=== PATIENT | female | born 1945 | race Caucasian/White ===

== ENCOUNTER 2019-10-20 09:51 | Emergency (ER) | payer MEDICARE ==
[~2019-10-20] VITALS: Ht 162.6 cm; Wt 80.7 kg
[2019-10-20 10:04] VITALS: BP_SYST 162
--- NOTE | 2019-10-20 10:19 | NUR ---
DR LAGOS IN TO ASSESS
--- NOTE | 2019-10-20 10:30 | NUR ---
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 COMMUNICATES CLEARLY IN FULL COMPLETE SENTENCES, EQUAL MOVEMENT OF ALL 4 EXT DENEIS CP/SOB
--- NOTE | 2019-10-20 10:40 | NUR ---
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
--- NOTE | 2019-10-20 10:45 | NUR ---
Patient given written and verbal discharge instructions and verbalizes understanding. ER MD discussed with patient the results and treatment provided. Patient in stable condition. Rx given. Patient educated on pain management and to follow up with PMD. Pain Scale 4/10. Opportunity for questions provided and answered. Medication side effect fact sheet provided.
[2019-10-20 10:48] VITALS: BP_SYST 150
== END 2019-10-20 10:48 | disposition home or self-care (01) ==
LOC: SED 09:51
DX: G51.0 Bell's palsy (principal); Z88.8 Allergy status to other drugs, medicaments and biological substances
CPT/HCPCS: 99283

== ENCOUNTER 2021-02-10 00:56 | Emergency (ER) | payer MEDICARE ==
[~2021-02-10] VITALS: Ht 162.6 cm; Wt 77.6 kg
--- NOTE | 2021-02-10 00:58 | NUR ---
Patient to ER bed 5 to gown for evaluation. Side rails up. Report given to Kelley LOZADA.
[2021-02-10 00:59] VITALS: BP_SYST 131
--- NOTE | 2021-02-10 01:00 | NUR ---
PATIENT BIB BLS COMPLAINING OF DIFFUSE ABDOMINAL PAIN, NAUSEA, VOMITING X 3 HOURS PRIOR TO ARRIVAL. DENIES ANY DIARRHEA OR CHEST PAIN. PAIN 7/10. NO OTHER COMPLAINTS/INJURIES PER PATIENT OR NOTED
--- NOTE | 2021-02-10 01:12 | NUR ---
ER Dr. VANCE at bedside examining patient.
[2021-02-10] MEDS ORDERED: NACL 0.9% 1,000 ML IV ONE (01:15)
[2021-02-10] MEDS ORDERED: KETOROLAC TROMETHAMINE 30 MG VIAL IVP ONE (01:15)
[2021-02-10] MEDS ORDERED: ONDANSETRON HCL 4 MG/2 ML VIAL IVP ONE (01:15)
--- NOTE | 2021-02-10 01:15 | NUR ---
# 20 gauge angiocath placed to RAC. Use of asceptic technique. Opsite placed over site. Blood return noted. Blood for lab drawn from site. Flushed with 10 cc of normal saline. No evidence of infiltration noted. Patient tolerated well.
[2021-02-10] MEDS ORDERED: FAMOTIDINE PF 20 MG/2 ML VIAL IVP ONE (02:15)
--- NOTE | 2021-02-10 02:41 | NUR ---
Patient given written and verbal discharge instructions and verbalizes understanding. ER MD discussed with patient the results and treatment provided. Patient in stable condition. ID arm band removed. IV catheter removed intact and dressing applied, no active bleeding. NO RX given. Patient educated on pain management and to follow up with PMD. Pain Scale . Opportunity for questions provided and answered. Medication side effect fact sheet provided.
[2021-02-10 02:43] VITALS: BP_SYST 121
== END 2021-02-10 02:41 | disposition home or self-care (01) ==
LOC: SED 00:56
DX: A05.9 Bacterial foodborne intoxication, unspecified (principal); I10 Essential (primary) hypertension; Z88.8 Allergy status to other drugs, medicaments and biological substances
CPT/HCPCS: 96361; 96374; 96375; 99284; J1885; J2405; J3490; J7030

== ENCOUNTER 2022-01-25 12:29 | Emergency (ER) | payer MEDICARE ==
[~2022-01-25] VITALS: Ht 152.4 cm; Wt 65.8 kg
[2022-01-25 12:36] VITALS: BP_SYST 120
--- NOTE | 2022-01-25 12:38 | NUR ---
Patient is awake and alert to self, date, time and current president. Pt BIBA from home with cc of low back pain today. Pt denies trauma or injury, denies taking pain medications at this time. Pain is chronic per patient.
--- NOTE | 2022-01-25 12:38 | NUR ---
ER at bedside examining patient.
--- NOTE | 2022-01-25 12:39 | NUR ---
Patient to ER bed 4 to gown for evaluation. Side rails up.
[2022-01-25] MEDS ORDERED: KETOROLAC TROMETHAMINE 30 MG VIAL IM ONE (12:45)
[2022-01-25 13:20] LABS: BASOPHILS % (AUTO) 0.7 % (0.0-2.0); EOSINOPHILS # (AUTO) 0.1 K/uL (0.0-0.4); EOSINOPHILS % (AUTO) 3.5 % (0.0-4.0); HEMATOCRIT 35.4 % (36-48); HEMOGLOBIN 11.8 g/dL (12.0-16.0); LYMPHOCYTES # (AUTO) 1.1 K/uL (1.0-5.5); LYMPHOCYTES % (AUTO) 32.7 % (20.5-51.5); MEAN CORPUSCULAR HEMOGLOBIN 28 pg (27-31); MEAN CORPUSCULAR HGB CONC 33 % (32-36); MEAN CORPUSCULAR VOLUME 84 fL (79.0-98.0); MONOCYTES # (AUTO) 0.4 K/uL (0.0-1.0); NEUTROPHILS # (AUTO) 1.8 K/uL (1.8-7.7); NEUTROPHILS % (AUTO) 51.1 % (40.0-70.0); PLATELET COUNT (AUTO) 81 K/uL (130-430); RED BLOOD CELL COUNT(AUTO) 4.22 MIL/uL (4.2-6.2); RED CELL DISTRIBUTION WIDTH 19.1 % (9.0-15.0); WHITE BLOOD COUNT (AUTO) 3.5 K/uL (4.8-10.8)
[2022-01-25 13:34] LABS: ANION GAP 6 (5-15); CALCIUM 10.6 mg/dL (8.4-11.0); CHLORIDE 107 mmol/L (98-107); CREATININE 0.83 mg/dL (0.55-1.30); GLUCOSE 91 mg/dL (70-99); POTASSIUM 3.7 mmol/L (3.5-5.1); UREA NITROGEN, BLOOD 18 mg/dL (8-21)
[2022-01-25] MEDS ORDERED: CEPH-548 PO (14:00)
[2022-01-25] MEDS ORDERED: TRAM50TA PO (14:00)
--- NOTE | 2022-01-25 14:15 | NUR ---
Patient given written and verbal discharge instructions and verbalizes understanding. ER MD discussed with patient the results and treatment provided. Patient in stable condition. ID arm band removed. Rx of given. Patient educated on pain management and to follow up with PMD. Pain Scale 4/10. Opportunity for questions provided and answered. Medication side effect fact sheet provided.
== END 2022-01-25 14:15 | disposition home or self-care (01) ==
LOC: SED 12:29
DX: N23 Unspecified renal colic (principal); I10 Essential (primary) hypertension; Z88.8 Allergy status to other drugs, medicaments and biological substances; Z79.899 Other long term (current) drug therapy
CPT/HCPCS: 99284; 74176; 80048; 85025; 36415; 76376; 81002; 96372; J1885